=== PATIENT | female | born 1945 | race Caucasian/White ===

== ENCOUNTER → 2017-03-01 | Outpatient (CLI) | payer MEDICARE | END | disposition home or self-care (01) | LOC: LAB 08:55 | PROVIDERS: ATTEND Nurse Practitioner Family | DX: E78.4 Other hyperlipidemia (principal); M85.80 Other specified disorders of bone density and structure, unspecified site | CPT/HCPCS: 36415; 80061; 84450; 84460 ==

== ENCOUNTER → 2017-05-02 | Outpatient (CLI) | payer MEDICARE | END | disposition home or self-care (01) | LOC: CFH 10:32 | PROVIDERS: ATTEND Student in an Organized Health Care Education/Training Program | DX: M50.323 Other cervical disc degeneration at C6-C7 level (principal); M48.02 Spinal stenosis, cervical region | CPT/HCPCS: 72050 ==

== ENCOUNTER → 2017-12-01 | Outpatient (CLI) | payer MEDICARE | END | disposition home or self-care (01) | LOC: CFH 09:57 | PROVIDERS: ATTEND Specialist | DX: M53.3 Sacrococcygeal disorders, not elsewhere classified (principal); M54.2 Cervicalgia; G89.29 Other chronic pain | CPT/HCPCS: 72202 ==

== ENCOUNTER → 2017-12-08 | Outpatient (CLI) | payer MEDICARE | END | disposition home or self-care (01) | LOC: CFH 06:57 | PROVIDERS: ATTEND Specialist | DX: M47.892 Other spondylosis, cervical region (principal); M48.02 Spinal stenosis, cervical region; M53.3 Sacrococcygeal disorders, not elsewhere classified | CPT/HCPCS: 72141 ==

== ENCOUNTER → 2019-01-03 | Outpatient (CLI) | payer MEDICARE | END | disposition home or self-care (01) | LOC: CFH 16:56 | PROVIDERS: ATTEND Nurse Practitioner Family | DX: M19.072 Primary osteoarthritis, left ankle and foot (principal); M25.775 Osteophyte, left foot ==